=== PATIENT | female | born 1955 | race Caucasian/White ===

== ENCOUNTER 2016-08-25 20:07 | Emergency (ER) | payer MEDICARE, OTHER ==
[~2016-08-25] VITALS: Ht 162.6 cm; Wt 171.0 kg
[~2016-08-25 20:07] MED LIST: ESOM40CA PO; GABA-585 PO; HYDR-2766 PO; LEVO75TA5 PO; POTASSIUM CHLO10 MEQ PO; SIMV10TA3 PO; VENTOLIN HFA18 GM INH
[2016-08-25] MEDS ORDERED: ALPRAZolam 0.5 MG TABLET PO ONE (20:45)
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
[2016-08-25 22:00] VITALS: BP 192/86
--- NOTE | 2016-08-27 08:52 | EKG ---
[facility] [address] [place] [address] Test Date: 2016-08-25 Test Time: 20:42:19 Pat Name: NEGIN LOZANO Department: Room: Gender: F [employer] Mechanical [employer]: : [id number] Requested By: GARRETT RAMOS Order Number: [id number] Reading MD: Solomon Sosa Measurements Intervals [place] Rate: 74 P: 38 KS: 150 QRS: 36 QRSD: 88 T: 35 QT: 404 QTc: 449 Interpretive Statements SINUS RHYTHM NON-SPECIFIC ST/T CHANGES Electronically Signed On 08-27-2016 8:52:12 CDT by Solomon Sosa
== END 2016-08-25 22:45 | disposition short-term general hospital (02) ==
LOC: ER 20:07
DX: F41.9 Anxiety disorder, unspecified (principal); R03.0 Elevated blood-pressure reading, without diagnosis of hypertension; J45.909 Unspecified asthma, uncomplicated; I25.10 Atherosclerotic heart disease of native coronary artery without angina pectoris; E78.00 Pure hypercholesterolemia, unspecified; E03.9 Hypothyroidism, unspecified; Z87.01 Personal history of pneumonia (recurrent); Z90.710 Acquired absence of both cervix and uterus; Z90.12 Acquired absence of left breast and nipple; Z95.5 Presence of coronary angioplasty implant and graft; Z88.0 Allergy status to penicillin; Z88.4 Allergy status to anesthetic agent; Z88.1 Allergy status to other antibiotic agents; Z91.012 Allergy to eggs
CPT/HCPCS: 93005; 99285-25